=== PATIENT | female | born 1965 | race Caucasian/White ===

== ENCOUNTER 2023-11-05 07:10 | Day surgery (SDC) | payer MEDICAID, OTHER ==
[~2023-11-05] VITALS: Ht 154.9 cm; Wt 48.5 kg
[2023-11-05] MEDS ORDERED: MEPERIDINE 100 MG INJ. 100 MG/ML VIAL ONE (07:43)
[2023-11-05] MEDS ORDERED: MIDAZOLAM HCL 5 MG/5 ML VIAL ONE (07:44)
[2023-11-05 11:54] VITALS: O2SAT 100
[2023-11-05 14:46] VITALS: BP_SYST 97; PULSE 53; RESP 15
== END 2023-11-05 11:20 | disposition home or self-care (01) ==
LOC: SGI 07:10 → SMU 07:22 → SGI 11:20
PROVIDERS: ATTEND Internal Medicine Gastroenterology
DX: R19.4 Change in bowel habit (principal); D12.5 Benign neoplasm of sigmoid colon; K29.50 Unspecified chronic gastritis without bleeding; K31.A0 Gastric intestinal metaplasia, unspecified; K29.80 Duodenitis without bleeding; R13.10 Dysphagia, unspecified; R19.7 Diarrhea, unspecified; K64.8 Other hemorrhoids; K44.9 Diaphragmatic hernia without obstruction or gangrene; J45.909 Unspecified asthma, uncomplicated; M19.90 Unspecified osteoarthritis, unspecified site; Z80.0 Family history of malignant neoplasm of digestive organs
CPT/HCPCS: 87081; 36415; 45380; 43239; 45385; 88305; 88312; 88313; 99152; 99153; G0378; J2250; J2175